=== PATIENT | female | born 1955 | race Caucasian/White ===

== ENCOUNTER 2018-10-13 10:03 | Inpatient (IN) | payer OTHER ==
[2018-10-10 13:13] LABS: ADD MAN DIFF? NO
[2018-10-10 13:23] LABS: WHITE BLOOD COUNT 4.4 10^3/ul (4.8-10.8)
[2018-10-10 13:23] LABS: BASOPHIL # 0.1 10^3/ul (0.0-0.1); BASOPHILS % 1.4 % (0.0-2.0); EOSINOPHILS # 0.2 10^3/ul (0.0-0.5); HEMATOCRIT 40.8 % (37.0-47.0); HEMOGLOBIN 13.3 g/dl (12.0-16.0); LYMPHOCYTES # 1.7 10^3/ul (0.8-2.9); LYMPHOCYTES % 37.4 % (15.0-51.0); MEAN CORPUSCULAR HEMOGLOBIN 29.6 pg (29.0-33.0); MEAN CORPUSCULAR HGB CONC 32.6 g/dl (32.0-37.0); MEAN CORPUSCULAR VOLUME 90.7 fl (82.0-101.0); MEAN PLATELET VOLUME 9.1 fl (7.4-10.4); MONOCYTE # 0.4 10^3/ul (0.3-0.9); MONOCYTES % 8.8 % (0.0-11.0); NEUTROPHIL # 2.1 10^3/ul (1.6-7.5); NEUTROPHILS % 47.2 % (39.0-77.0); PLATELET COUNT 247 10^3/UL (140-415); RED CELL DISTRIBUTION WIDTH 12.8 % (11.5-14.5)
[2018-10-10 13:34] LABS: ADD UMIC NO; UR ASCORBIC ACID NEGATIVE (NEGATIVE); UR BILIRUBIN (Dip) NEGATIVE (NEGATIVE); UR BLOOD (Dip) NEGATIVE (NEGATIVE); UR CLARITY CLEAR (CLEAR); UR COLOR YELLOW (YELLOW); UR GLUCOSE (Dip) NEGATIVE (NEGATIVE); UR KETONES (Dip) 1+ mg/dL (NEGATIVE); UR LEUKOCYTE ESTERASE (Dip) NEGATIVE Leu/ul (NEGATIVE); UR NITRITE (Dip) NEGATIVE (NEGATIVE); UR SPECIFIC GRAVITY (Dip) 1.009 (1.003-1.030); UR TOTAL PROTEIN (Dip) NEGATIVE (NEGATIVE); UR UROBILINOGEN (Dip) NEGATIVE (NEGATIVE)
[2018-10-10 13:41] LABS: ALANINE AMINOTRANSFERASE 14 IU/L (13-69); ALBUMIN 4.1 g/dl (3.3-4.9); ALBUMIN/GLOBULIN RATIO 1.41; ALKALINE PHOSPHATASE 63 IU/L (42-121); ANION GAP 9 (5-13); ASPARTATE AMINO TRANSFERASE 20 IU/L (15-46); BILIRUBIN,INDIRECT 0.3 mg/dl (0-1.1); BILIRUBIN,TOTAL 0.3 mg/dl (0.2-1.3); BLOOD UREA NITROGEN 10 mg/dl (7-20); CALCIUM 8.8 mg/dl (8.4-10.2); CARBON DIOXIDE 24 mmol/L (21-31); CHLORIDE 107 mmol/L (97-110); CREATININE 0.62 mg/dl (0.44-1.00); Estimated GFR > 60 mL/min (>60); GLUCOSE 86 mg/dl (70-220); POTASSIUM 4.3 mmol/L (3.5-5.1); SODIUM 140 mmol/L (135-144)
[2018-10-13] MEDS: SOD CHLORIDE 0.9% 100 ML, TRANEXAMIC ACID 3,000 MG IRR (07:00)
[~2018-10-13 10:03] MED LIST: BUPIVACAINE 0.5% (SDV) 30 ML, morphine SULFATE (PF) 8 MG, EPINEPHrine 0.3 MG, KETOROLAC... IRR; LIDOCAINE 2% (SDV) 5 ML INJ
[2018-10-13] MEDS: DEXAMETHASONE 1 MG TAB PO (11:24)
[2018-10-13] MEDS: VANCOMYCIN 1 GM (PMX) 250 ML IVPB (11:24)
[2018-10-13] MEDS: GABAPENTIN 300 MG CAP PO ×2 (11:24→21:00)
[2018-10-13] MEDS ORDERED: MIDAZOLAM 1 MG/ML 2 ML INJ (11:54)
[2018-10-13] MEDS: TRANEXAMIC ACID 1GM/100ML(PMX) 100 ML IVPB ×2 (11:55→13:00)
[2018-10-13] MEDS ORDERED: PHENYLephrine (100 MCG/ML) 10ML SYG (12:21)
[2018-10-13] MEDS ORDERED: FENTAnyl 50 MCG/ML VIAL IV ×2 (12:30)
[2018-10-13] MEDS ORDERED: MEPERIDINE 25 MG INJ IV (12:30)
[2018-10-13] MEDS ORDERED: HYDROmorphONE 1 MG/5 ML IV SYRINGE IV ×3 (12:30)
[2018-10-13] MEDS ORDERED: ONDANSETRON 4 MG INJ IV ×2 (12:30→13:30)
[2018-10-13] MEDS ORDERED: METOCLOPRAMIDE 10 MG INJ IV (12:30)
[2018-10-13] MEDS ORDERED: ALBUTEROL 0.083% (NEB) 2.5 MG/3 ML AMP HHN (12:30)
[2018-10-13] MEDS ORDERED: DIPHENHYDRAMINE 50 MG INJ IV ×2 (12:30→13:30)
[2018-10-13] MEDS ORDERED: CA CHLORIDE 10% 10 ML SYRINGE (12:36)
[2018-10-13] MEDS ORDERED: THROMBIN 5000 UNIT VIAL (12:36)
[2018-10-13] MEDS ORDERED: MAGNESIUM HYDROXIDE 30ML CUP PO (13:30)
[2018-10-13] MEDS: LACTATED RINGER'S 1,000 ML IV ×2 (13:30→22:45)
[2018-10-13] MEDS ORDERED: ZOLPIDEM 5 MG TAB PO (13:30)
[2018-10-13] MEDS ORDERED: oxyCODONE 5 MG TAB PO ×2 (13:30)
[2018-10-13] MEDS ORDERED: NACL 0.9% 3 ML SYG IV (13:30)
[2018-10-13] MEDS ORDERED: HYDROmorphONE 1 MG/ML SYG IV (13:30)
[2018-10-13] MEDS ORDERED: PROPOFOL 20 ML (13:38)
[2018-10-13] MEDS ORDERED: SUGAMMADEX SODIUM 200 MG/2 ML VIAL IV (13:38)
[2018-10-13] MEDS ORDERED: ROCURONIUM 50 MG INJ (13:38)
[2018-10-13] MEDS ORDERED: SUCCINYLCHOLINE CHLORIDE 100 MG/5 ML SYG IV (13:38)
[2018-10-13 14:20] LABS: ADD MAN DIFF? NO
[2018-10-13 14:23] LABS: BASOPHILS % 0.7 % (0.0-2.0); EOSINOPHILS # 0.1 10^3/ul (0.0-0.5); HEMATOCRIT 36.4 % (37.0-47.0); HEMOGLOBIN 11.7 g/dl (12.0-16.0); LYMPHOCYTES # 1.3 10^3/ul (0.8-2.9); LYMPHOCYTES % 23.9 % (15.0-51.0); MEAN CORPUSCULAR HEMOGLOBIN 29.5 pg (29.0-33.0); MEAN CORPUSCULAR HGB CONC 32.1 g/dl (32.0-37.0); MEAN CORPUSCULAR VOLUME 91.9 fl (82.0-101.0); MEAN PLATELET VOLUME 9.6 fl (7.4-10.4); MONOCYTE # 0.2 10^3/ul (0.3-0.9); MONOCYTES % 3.8 % (0.0-11.0); NEUTROPHIL # 3.8 10^3/ul (1.6-7.5); NEUTROPHILS % 69.1 % (39.0-77.0); PLATELET COUNT 204 10^3/UL (140-415); RED BLOOD COUNT 3.96 10^6/ul (4.20-5.40); RED CELL DISTRIBUTION WIDTH 12.7 % (11.5-14.5)
[2018-10-13 14:23] LABS: WHITE BLOOD COUNT 5.6 10^3/ul (4.8-10.8)
[2018-10-13] MEDS: ACETAMINOPHEN 1000MG/100ML IV 100 ML IVPB ×2 (15:04→22:41)
[2018-10-13] MEDS: DEXAMETHASONE 2 MG TAB PO (18:00)
[2018-10-13] MEDS: SENNA/DOCUSATE NA (8.6MG/50MG) TAB PO (21:00)
[2018-10-14] MEDS: VANCOMYCIN 500 MG (PMX) 100 ML IVPB ×2 (00:54→14:00)
[2018-10-14 05:21] LABS: ADD MAN DIFF? NO
[2018-10-14 05:27] LABS: WHITE BLOOD COUNT 6.4 10^3/ul (4.8-10.8)
[2018-10-14 05:27] LABS: BASOPHILS % 0.3 % (0.0-2.0); EOSINOPHILS % 0.2 % (0.0-7.0); HEMATOCRIT 30.2 % (37.0-47.0); HEMOGLOBIN 9.7 g/dl (12.0-16.0); LYMPHOCYTES # 0.9 10^3/ul (0.8-2.9); LYMPHOCYTES % 14.5 % (15.0-51.0); MEAN CORPUSCULAR HEMOGLOBIN 29.7 pg (29.0-33.0); MEAN CORPUSCULAR HGB CONC 32.1 g/dl (32.0-37.0); MEAN CORPUSCULAR VOLUME 92.4 fl (82.0-101.0); MEAN PLATELET VOLUME 9.9 fl (7.4-10.4); MONOCYTE # 0.6 10^3/ul (0.3-0.9); MONOCYTES % 8.9 % (0.0-11.0); NEUTROPHIL # 4.9 10^3/ul (1.6-7.5); NEUTROPHILS % 75.6 % (39.0-77.0); PLATELET COUNT 184 10^3/UL (140-415); RED BLOOD COUNT 3.27 10^6/ul (4.20-5.40)
[2018-10-14] MEDS: DEXAMETHASONE 2 MG TAB PO ×3 (06:00→12:23)
[2018-10-14] MEDS: ACETAMINOPHEN 1000MG/100ML IV 100 ML IVPB (06:21)
[2018-10-14] MEDS: MEDROXYPROGESTERONE 2.5 MG TAB PO (08:47)
[2018-10-14] MEDS: SENNA/DOCUSATE NA (8.6MG/50MG) TAB PO (08:48)
[2018-10-14] MEDS: ESTRADIOL 1 MG TAB PO (08:48)
[2018-10-14] MEDS ORDERED: PANTOPRAZOLE (EC) 40 MG TAB PO (09:00)
[2018-10-14] MEDS: LACTATED RINGER'S 1,000 ML IV (09:30)
[2018-10-14] MEDS: oxyCODONE 5 MG TAB PO (12:59)
[2018-10-15] MEDS ORDERED: MAGNESIUM HYDROXIDE 30ML CUP PO (21:00)
== END 2018-10-14 16:53 | disposition home or self-care (01) | DRG 470 ==
LOC: REC 10:03 → MS1 15:24
PROC: 0SR904A Replacement of Right Hip Joint with Ceramic on Polyethylene Synthetic Substitute, Uncemented, Open Approach (ICD-10-PCS; principal; 2018-10-13 11:55)
DX: M16.51 Unilateral post-traumatic osteoarthritis, right hip (principal); Z98.890 Other specified postprocedural states; F41.9 Anxiety disorder, unspecified; K21.9 Gastro-esophageal reflux disease without esophagitis
CPT/HCPCS: 71045; 72170; 73530; 80053; 81003; 85025; 86999; 87086; 88304; 88311; 93005; 97116; 97161; 97530